=== PATIENT | female | born 1975 | race Caucasian/White ===

== ENCOUNTER 2021-10-21 11:17 | Emergency (ER) | payer MEDICAID ==
[~2021-10-21] VITALS: Ht 160 cm; Wt 61.2 kg
[~2021-10-21 11:17] MED LIST: AZIT-21 PO; FLUT250D2 IH; OMEP20TA33 PO; RT-ALBUINH IH; SERT100T PO; bcp PO
--- NOTE | 2021-10-21 11:35 | ED General ---
General Stated Complaint: DIFICULTY BREATHING,HEAD ACHE,BACK PAIN,CHEST PAIN Source of Information: Patient Exam Limitations: No Limitations History of Present Illness Date Seen by Provider: Oct 21, 2021 Time Seen by Provider: 11:33 Initial Comments To ER with shortness of breath headache, chest pain back pain. This began around the first of the month. She just went to [place] at that time and went scuba diving. On her way home around 22 September she developed symptoms of Covid with headache chills shortness of breath. She was never tested and the headache and chills are gone but the shortness of breath with any exertion remains. She has a history of asthma and has been using her nebulizer and inhaler a lot lately without any improvement in symptoms. She denies any swelling in either of her legs. She has not yet seen her primary care Dr. Rodriguez for this. She states that at rest she is okay but with any exertion even as simple as sitting at home and cooking she gets very dyspneic. Timing/Duration: 1-2 Days Severity: Moderate Associated Systoms: Denies Symptoms Allergies and Home Medications Allergies Coded Allergies: Iodinated Contrast Media (Verified Allergy, Unknown, HIVES, 02/21/16) Patient Home Medication List Home Medication List Reviewed: Yes Albuterol Sulfate (Ventolin Hfa) 18 Gm Hfa.aer.ad, 1-2 PUFF IH Q4H, (Reported) Entered as Reported by: RENETTA RAMIREZ on 02/21/16 143 Fluticasone Propionate (Flovent Diskus 250 mcg) 250 Mcg Blst.w.dev, 250 MCG IH BID, (Reported) Entered as Reported by: RENETTA RAMIREZ on 02/21/16 143 Omeprazole Magnesium (Prilosec Otc) 20 Mg Tablet.dr, 20 MG PO DAILY, (Reported) Entered as Reported by: RENETTA RAMIREZ on 02/21/16 143 Sertraline HCl (Zoloft) 100 Mg Tablet, 100 MG PO DAILY, (Reported) Entered as Reported by: RENETTA RAMIREZ on 02/21/16 143 [bcp] , 1 TAB PO DAILY, (Reported) Entered as Reported by: RENETTA RAMIREZ on 02/21/16 143 Review of Systems Review of Systems Constitutional: see HPI EENTM: see HPI Respiratory: see HPI, short of breath Cardiovascular: no symptoms reported Genitourinary: no symptoms reported Musculoskeletal: no symptoms reported Skin: no symptoms reported Psychiatric/Neurological: No Symptoms Reported Hematologic/Lymphatic: No Symptoms Reported Past Qinrdqm-Zcjish-Kmttyj Hx Seasonal Allergies Seasonal Allergies: No Past Medical History Breast, Orthopedic Reproductive Disorders: No Fractures Depression Adverse Reaction/Blood Tranf: No Physical Exam Vital Signs Vital Signs - First Documented 10/21/21 11:25 Temp 36.7 Pulse 105 Resp 20 B/P (MAP) 186/93 (124) O2 Delivery Room Air Capillary Refill : Height, Weight, BMI Height: 5'5.00" Weight: 163lbs. 0.0oz. [id number]; 27.1 BMI Method:Estimated General Appearance: No Apparent Distress, WD/WN Eyes: Bilateral Eye Normal Inspection, Bilateral Eye PERRL, Bilateral Eye EOMI Neck: Full Range of Motion, Normal Inspection Respiratory: No Accessory Muscle Use, No Respiratory Distress Cardiovascular: Regular Rate, Rhythm, Normal Peripheral Pulses, Tachycardia (Is about 100 sinus oxygen 99 to 100% room air.) Gastrointestinal: Normal Bowel Sounds, Non Tender, Soft Extremity: Normal Capillary Refill, Normal Inspection Neurologic/Psychiatric: Alert, Oriented x3 Skin: Normal Color, Warm/Dry Progress/Results/Core Measures Suspected Sepsis SIRS Temperature: Pulse: Respiratory Rate: Laboratory Tests 10/21/21 11:30: White Blood Count 9.8 Blood Pressure / Mean: Laboratory Tests 10/21/21 11:30: Creatinine 0.97, Platelet Count 294, Total Bilirubin 0.8 Results/Orders Lab Results Laboratory Tests Test 10/21/21 11:30 Range/Units White Blood Count 9.8 4.3-11.0 10^3/uL Red Blood Count 5.10 3.80-5.11 10^6/uL Hemoglobin 15.6 11.5-16.0 g/dL Hematocrit 45 35-52 % Mean Corpuscular Volume 88 80-99 fL Mean Corpuscular Hemoglobin 31 25-34 pg Mean Corpuscular Hemoglobin Concent 35 32-36 g/dL Red Cell Distribution Width 11.6 10.0-14.5 % Platelet Count 294 130-400 10^3/uL Mean Platelet Volume 9.3 9.0-12.2 fL Immature Granulocyte % (Auto) 0 % Neutrophils (%) (Auto) 56 42-75 % Lymphocytes (%) (Auto) 22 12-44 % Monocytes (%) (Auto) 10 0-12 % Eosinophils (%) (Auto) 11 H 0-10 % Basophils (%) (Auto) 1 0-10 % Neutrophils # (Auto) 5.5 1.8-7.8 10^3/uL Lymphocytes # (Auto) 2.1 1.0-4.0 10^3/uL Monocytes # (Auto) 1.0 0.0-1.0 10^3/uL Eosinophils # (Auto) 1.1 H 0.0-0.3 10^3/uL Basophils # (Auto) 0.1 0.0-0.1 10^3/uL Immature Granulocyte # (Auto) 0.0 0.0-0.1 10^3/uL D-Dimer 0.30 0.00-0.49 UG/ML Sodium Level 141 135-145 MMOL/L Potassium Level 3.4 L 3.6-5.0 MMOL/L Chloride Level 106 98-107 MMOL/L Carbon Dioxide Level 26 21-32 MMOL/L Anion Gap 9 5-14 MMOL/L Blood Urea Nitrogen 8 7-18 MG/DL Creatinine 0.97 0.60-1.30 MG/DL Estimat Glomerular Filtration Rate 74 BUN/Creatinine Ratio 8 Glucose Level 143 H 70-105 MG/DL Calcium Level 9.1 8.5-10.1 MG/DL Corrected Calcium 8.9 8.5-10.1 MG/DL Total Bilirubin 0.8 0.1-1.0 MG/DL Aspartate Amino Transf (AST/SGOT) 14 5-34 U/L Alanine Aminotransferase (ALT/SGPT) 25 0-55 U/L Alkaline Phosphatase 56 40-136 U/L Troponin I < 0.028 <0.028 NG/ML C-Reactive Protein High Sensitivity 1.92 H 0.00-0.50 MG/DL Total Protein 7.2 6.4-8.2 GM/DL Albumin 4.3 3.2-4.5 GM/DL Procalcitonin 0.03 <0.10 NG/ML Serum Test, Qualitative NEGATIVE NEGATIVE My Orders Orders - JEREMIAH GREWAL APRN Fibrin Degradation Products (10/21/21 11:31) Hcg,Qualitative Serum (10/21/21 11:31) Cbc With Automated Diff (10/21/21 11:31) Comprehensive Metabolic Panel (10/21/21 11:31) Ed Iv/Invasive Line Start (10/21/21 11:31) Chest 1 View, Ap/Pa Only (10/21/21 11:31) Coronavirus Sars-Cov-2 So 2018 (10/21/21 11:31) Procalcitonin (Pct) (10/21/21 11:31) Hs C Reactive Protein (10/21/21 11:31) Diphenhydramine Injection (Benadryl Inje (10/21/21 11:45) Famotidine Injection (Pepcid Injection) (10/21/21 11:45) Methylprednisolone Sod Succ (Solu-Medrol (10/21/21 11:45) Ekg Tracing (10/21/21 11:37) Troponin I Sargent (10/21/21 11:37) Ketorolac Injection (Toradol Injection) (10/21/21 11:45) Ct Angio Chest W (10/21/21 11:57) Iohexol Injection (Omnipaque 350 Mg/Ml 1 (10/21/21 12:15) Received Contrast (Hold Metformin- Contr (10/21/21 12:15) Sodium Chloride Flush (Catheter Flush Sy (10/21/21 12:15) Ns (Ivpb) (Sodium Chloride 0.9% Ivpb Bag (10/21/21 12:15) Medications Given in ED Current Medications Medications Dose Ordered Sig/Mireille Route Start Time Stop Time Status Last Admin Dose Admin Diphenhydramine HCl 25 mg ONCE ONCE IVP 10/21/21 11:45 10/21/21 11:46 DC 10/21/21 11:49 25 MG Famotidine 20 mg ONCE ONCE IVP 10/21/21 11:45 10/21/21 11:46 DC 10/21/21 11:52 20 MG Iohexol 100 ml ONCE ONCE IV 10/21/21 12:15 10/21/21 12:18 DC 10/21/21 12:26 61 ML Ketorolac Tromethamine 15 mg ONCE ONCE IVP 10/21/21 11:45 10/21/21 11:46 DC 10/21/21 11:43 15 MG Methylprednisolone Sodium Succinate 80 mg ONCE ONCE IV 10/21/21 11:45 10/21/21 11:46 DC 10/21/21 11:45 80 MG Sodium Chloride 10 ml NEEDED PRN IV 10/21/21 12:15 10/21/21 12:27 10 ML Sodium Chloride 100 ml ONCE ONCE IV 10/21/21 12:15 10/21/21 12:18 DC 10/21/21 12:26 80 ML Vital Signs/I&O 10/21/21 11:25 Temp 36.7 Pulse 105 Resp 20 B/P (MAP) 186/93 (124) O2 Delivery Room Air Capillary Refill : Departure Communication (Admissions) Family Conversation EKG shows sinus rhythm rate of 96 normal intervals no ectopy no ST segment change NAME: YNES ARMENDARIZ [facility] REC#: [id number] PT STATUS: REG ER : 1975 PHYSICIAN: JEREMIAH GREWAL APRN ADMIT DATE: 10/21/21/ER Draft Date of Exam:10/21/21 CT ANGIO CHEST W PROCEDURE: CT angiography Chest TECHNIQUE: After intravenous administration of contrast, thin section axial CT angiography of the chest was performed. 3D MIP reconstructions were made. All CT scans use one or more of the following dose optimizing techniques: automated exposure control, MA and/or KvP adjustment based on a patient size and exam type, or iterative reconstruction. INDICATION: Dyspnea on exertion. COMPARISON: CT abdomen and pelvis of 12/15/2014. FINDINGS: Vasculature: No pulmonary emboli. No CT evidence of pulmonary hypertension or right ventricular strain. Thoracic aorta is normal in caliber. No aortic dissection or pseudoaneurysm. Heart and mediastinum: Visualized thyroid is normal. No supraclavicular, axillary, or intra-thoracic lymphadenopathy. The heart is normal in size without pericardial effusion. Pleura: No pleural effusion or pneumothorax. Lungs and airway: No endoluminal lesion in the trachea or central bronchi. There are few scattered groundglass opacities in the medial aspect of both upper lobes. Left lower lobe also has a few scattered groundglass opacities. Upper abdomen: Allowing for the phase of contrast, no acute abnormality in the upper abdomen is seen. Musculoskeletal: No concerning osseous lesion. Bilateral saline breast implants. IMPRESSION: 1. No pulmonary emboli or acute aortic syndrome. 2. Scattered bilateral groundglass opacities are nonspecific but previously seen in the setting of COVID 19. Dictated on workstation # [id number] Dict: 10/21/21 1254 Trans: 10/21/21 1300 CVB [id number] Interpreted by: ANAND JARA MD Electronically signed by: NAME: YNES [facility]ENDARIZ [facility] REC#: [id number] PT STATUS: REG ER : 1975 PHYSICIAN: JEREMIAH GREWAL APRN ADMIT DATE: 10/21/21/ER Draft Date of Exam:10/21/21 CHEST 1 VIEW, AP/PA ONLY INDICATION: Chest pain Portable chest 11:47 AM Heart size and pulmonary vascularity are normal. Lungs are clear. There are no effusions or pneumothoraces. IMPRESSION: Negative chest Dictated on workstation # [id number] Dict: 10/21/21 1149 Trans: 10/21/21 1150 CVB [id number] Interpreted by: FLORY BLEVINS MD Electronically signed by: Impression Primary Impression: Exertional dyspnea Additional Impression: Viral pneumonia Disposition: HOME, SELF-CARE Condition: Stable Departure-Patient Inst. Decision time for Depature: 12:56 Referrals: UMANG RODRIGUEZ MD (PCP) Primary Care Physician Patient Instructions: Shortness of Breath (Dyspnea) Add. Discharge Instructions: . Follow-up with Dr. Rodriguez. Call today to make an appointment to be seen. The emergency room is limited to evaluation of acute life-threatening problems. You will need further evaluation of your shortness of breath. The emergent causes of shortness of breath have been ruled out here in emergency room. There is no heart attack, there is no aortic dissection there is no heart failure there is no bacterial pneumonia there is no blood clot in the lungs. There is no fluid around the lungs. Some infiltrates minor in both lungs which can be seen with resolving Covid infection. Scripts Azithromycin (Azithromycin) 250 Mg Tablet 250 MG PO UD, #6 TAB TAKE 2 TABLETS ON DAY ONE THEN TAKE 1 TABLET DAILY FOR FOUR MORE DAYS Prov: JEREMIAH GREWAL APRN 10/21/21 Methylprednisolone (Methylprednisolone Dose Pack) 4 Mg Tab.ds.pk 4 MG PO UD for 6 Days, #21 PKG PER DOSE PACK INSTRUCTIONS Prov: JEREMIAH GREWAL APRN 10/21/21 Copy Copies To 1: UMANG RODRIGUEZ MD, PETER J APRN Oct 21, 2021 11:35
[2021-10-21] MEDS ORDERED: FAMOTIDINE 20MG/2ML IV (PEPCID) IVP ONE (11:45)
[2021-10-21] MEDS ORDERED: diphenhydrAMINE 50 MG/ML INJ (BENADRYL) IVP ONE (11:45)
[2021-10-21] MEDS ORDERED: methylPREDNISolone 40 MG/ML (Solu-MEDROL) VIAL IV ONE (11:45)
[2021-10-21] MEDS ORDERED: KETOROLAC 30 MG/ML VIAL IVP ONE (11:45)
[2021-10-21 11:48] LABS: BASOPHILS # (AUTO) 0.1 10^3/uL (0.0-0.1); BASOPHILS % (AUTO) 1 % (0-10); EOSINOPHILS # (AUTO) 1.1 10^3/uL (0.0-0.3); EOSINOPHILS % (AUTO) 11 % (0-10); HEMATOCRIT 45 % (35-52); HEMOGLOBIN 15.6 g/dL (11.5-16.0); LYMPHOCYTES # (AUTO) 2.1 10^3/uL (1.0-4.0); LYMPHOCYTES % (AUTO) 22 % (12-44); MEAN CORPUSCULAR HEMOGLOBIN 31 pg (25-34); MEAN CORPUSCULAR HGB CONC 35 g/dL (32-36); MEAN CORPUSCULAR VOLUME 88 fL (80-99); MEAN PLATELET VOLUME 9.3 fL (9.0-12.2); MONOCYTES % (AUTO) 10 % (0-12); NEUTROPHILS # (AUTO) 5.5 10^3/uL (1.8-7.8); NEUTROPHILS % (AUTO) 56 % (42-75); PLATELET COUNT 294 10^3/uL (130-400); WHITE BLOOD COUNT 9.8 10^3/uL (4.3-11.0)
--- NOTE | 2021-10-21 11:51 | Diagnostic Imaging Report ---
INDICATION: Chest pain Portable chest 11:47 AM Heart size and pulmonary vascularity are normal. Lungs are clear. There are no effusions or pneumothoraces. IMPRESSION: Negative chest Dictated by: Dictated on workstation # [id number]
[2021-10-21 12:02] LABS: ALANINE AMINOTRANSFERASE 25 U/L (0-55); ALBUMIN 4.3 GM/DL (3.2-4.5); ALKALINE PHOSPHATASE 56 U/L (40-136); BILIRUBIN,TOTAL 0.8 MG/DL (0.1-1.0); BUN/CREATININE RATIO 8; CALCIUM 9.1 MG/DL (8.5-10.1); CARBON DIOXIDE 26 MMOL/L (21-32); CHLORIDE 106 MMOL/L (98-107); CREATININE SERUM 0.97 MG/DL (0.60-1.30); GFR ESTIMATED 74; GLUCOSE 143 MG/DL (70-105); POTASSIUM 3.4 MMOL/L (3.6-5.0); SODIUM 141 MMOL/L (135-145); TOTAL PROTEIN 7.2 GM/DL (6.4-8.2)
[2021-10-21] MEDS ORDERED: NS 100 ML (IVPB) BAG IV ONE (12:15)
[2021-10-21] MEDS ORDERED: HOLD METFORMIN - RECEIVED CONTRAST 20 ML VIAL IV SCH (12:15)
[2021-10-21] MEDS ORDERED: IOHEXOL 350 MG/ML 100 ML (OMNIPAQUE 350) VIAL IV ONE (12:15)
[2021-10-21] MEDS: CATHETER FLUSH 10 ML SYR IV PRN ×2 (12:26→12:27)
--- NOTE | 2021-10-21 13:00 | Diagnostic Imaging Report ---
PROCEDURE: CT angiography Chest TECHNIQUE: After intravenous administration of contrast, thin section axial CT angiography of the chest was performed. 3D MIP reconstructions were made. All CT scans use one or more of the following dose optimizing techniques: automated exposure control, MA and/or KvP adjustment based on a patient size and exam type, or iterative reconstruction. INDICATION: Dyspnea on exertion. COMPARISON: CT abdomen and pelvis of 12/15/2014. FINDINGS: Vasculature: No pulmonary emboli. No CT evidence of pulmonary hypertension or right ventricular strain. Thoracic aorta is normal in caliber. No aortic dissection or pseudoaneurysm. Heart and mediastinum: Visualized thyroid is normal. No supraclavicular, axillary, or intra-thoracic lymphadenopathy. The heart is normal in size without pericardial effusion. Pleura: No pleural effusion or pneumothorax. Lungs and airway: No endoluminal lesion in the trachea or central bronchi. There are few scattered groundglass opacities in the medial aspect of both upper lobes. Left lower lobe also has a few scattered groundglass opacities. Upper abdomen: Allowing for the phase of contrast, no acute abnormality in the upper abdomen is seen. Musculoskeletal: No concerning osseous lesion. Bilateral saline breast implants. IMPRESSION: 1. No pulmonary emboli or acute aortic syndrome. 2. Scattered bilateral groundglass opacities are nonspecific but previously seen in the setting of COVID 19. Dictated by: Dictated on workstation # [id number]
[2021-10-21] MEDS ORDERED: METH4TAB10 PO (13:12)
[2021-10-21] MEDS ORDERED: AZIT250T12 PO (13:12)
[2021-10-21 13:19] VITALS: BP 148/78
== END 2021-10-21 13:19 | disposition home or self-care (01) ==
LOC: EDUNIT# 11:17 → ER 11:21
DX: R06.09 Other forms of dyspnea (principal); J12.9 Viral pneumonia, unspecified; R00.0 Tachycardia, unspecified; F32.9 Major depressive disorder, single episode, unspecified; Z20.822 Contact with and (suspected) exposure to COVID-19; Z79.899 Other long term (current) drug therapy
CPT/HCPCS: 36415; 71045; 71275; 80053; 84145; 84484; 84703; 85025; 85379; 86141; 87635; 93005